=== PATIENT | female | born 1990 | race Caucasian/White ===

== ENCOUNTER → 2021-10-03 | Outpatient (CLI) | payer OTHER ==
--- NOTE | 2021-10-03 14:49 | RAD ---
INDICATION: Reason: UNKNOWN DATES, VIABILITY, HX OF ECTOPIC / Spl. Instructions: / History: COMPARISON: None available TECHNIQUE: Grayscale and color ultrasound images of the pelvis. FINDINGS: Uterus: 134 x 64 x 49 mm. Intrauterine gestational sac is seen and unremarkable. Too early in gestation to adequately assess p lacenta. pole seen. CRL: 10 mm. Estimated Gestational Age: 7 weeks and 0 days Heart Beat: 113 Right Ovary: 28 x 26 x 16 mm. Left Ovary: 32 x 23 x 20 mm. Vascular flow identified to bilateral ovaries. IMPRESSION: * Intrauterine is seen with positive heart beat. * Recommend routine anomaly screening at 18-22 weeks. Electronically signed by: Leo Keys MD (10/03/2021 2:46 PM) [id number]
== END ==
LOC: US 14:01
PROVIDERS: ATTEND Family Medicine
DX: Z01.89 Encounter for other specified special examinations (principal); Z3A.01 Less than 8 weeks gestation of pregnancy
CPT/HCPCS: 76801